=== PATIENT | male | born 1945 | race African-American/Black ===

== ENCOUNTER 2016-08-21 21:27 | Inpatient (IN) ==
--- NOTE | 2016-08-22 00:22 | PROVIDER DOCUMENTATION ---
HPI-Respiratory General - General Chief Complaint: General Adult Stated Complaint: COLD SX Time Seen by Provider: 08/21/16 23:23 Source: patient Allergies/Adverse Reactions: Patient Allergies Allergy/AdvReac Type Severity Reaction Status Date / Time No Known Allergies Allergy Verified 08/21/16 23:23 Home Medications: Home Medication List Medication Instructions Recorded Confirmed Last Taken Type Losartan/Hydrochlorothiazide 1 each PO DAILY 05/08/14 08/21/16 08/20/16 08:00 History [Losartan-Hctz 100-25 mg Tab] Allopurinol 200 mg PO DAILY 08/21/16 08/21/16 08/21/16 08:00 History Ergocalciferol (Vitamin D2) 50,000 unit PO DIRECTED 08/21/16 08/21/16 08:00 History [Drisdol] Gabapentin 300 mg PO TID 08/21/16 08/21/16 08/21/16 20:00 History Insulin Aspart [Novolog] 10 unit SQ BID 08/21/16 08/21/16 08/21/16 08:00 History Probenecid 500 mg PO DAILY 08/21/16 08/21/16 08/21/16 08:00 History Rosuvastatin Calcium 5 mg PO HS 08/21/16 08/21/16 08/21/16 20:00 History Sitagliptin Phos/Metformin HCl 1 each PO DAILY 08/21/16 08/21/16 08/21/16 08:00 History [Janumet 50-1,000 mg Tablet] - History of Present Illness-Resp Nature of Presenting Problem: 71 YO BM presents with productive cough x several days. Has been taking ALkaseltzer but not helping. No other treatment tried. Hasn't had a fever at home, slight increase in temp in the ED tonight. Has had pneumonia in the past but has been years. No recent hospitalization, no recent abx use. Denies N/V/D, sinus congestion or symptoms, ear pain, sore throat, swelling. Quality of Pain: reports: other Severity in ED: reports: mild Onset/Duration: reports: 3 days ago Timing: reports: still present, getting worse Cough Quality/Degree: reports: moderate, productive cough Current Respiratory Medication Therapy: Initiated none Modifying Factors: improves with: other (wilver seltzer) Associated Symptoms: reports: cough. denies: chest pain/soreness, dizziness, earache, facial pain, fever/chills, headache, hurts to breathe, lightheadedness , nasal congestion, nasal drainage, sinus pain, short of breath, sore throat, wheezing Similar Symptoms Previously?: No Recently seen or treated by another doctor?: No Review of Systems - Adult - REVIEW OF SYSTEMS - ADULT Constitutional: denies: chills, fever, night sweats, weight loss Eyes: denies: decreased vision, blurred vision, double vision Ears, Nose, Mouth & Throat: denies: ear pain, nose pain, throat pain Cardiovascular: denies: chest pain Respiratory: reports: cough, hemoptysis. denies: shortness of breath, wheezing Gastrointestinal: denies: abdominal pain, diarrhea, nausea, vomiting Musculoskeletal: denies: bone pain, back pain Neurological: denies: dizziness/vertigo, headache/migraines Past History - Adult - PAST MEDICAL HISTORY-ADULT Review of Records: reports: Old Records Reviewed, Nursing Assessment Review, Medications Reviewed, Social history reviewed & non-contributory. Major Childhood Illnesses: reports: denies history Cardiovascular: reports: HTN, hyperlipidemia Respiratory: reports: denies history Gastrointestinal: reports: denies history Obstetrical/Gynecological: reports: denies history Genitourinary: reports: prostate cancer Musculoskeletal: reports: denies history Neurological: reports: denies history Endocrine/Immune: reports: Diabetes Other Conditions: reports: denies history - PRIOR SURGERIES/PROCEDURES Surgical/Procedure History: reports: colonoscopy, other (prostate) - IMMUNIZATION STATUS Childhood Immunizations: See Nurse Assessment Flu Vaccine: See Nurse Assessment - FAMILY HISTORY Family History: reviewed, not pertinent - SOCIAL HISTORY Smoking: non-smoker, quit greater than 1 year Physical Exam-General - PHYSICAL EXAM-ADULT Initial Vital Signs Reviewed: Yes - CONSTITUTIONAL General Appearance: appears well, alert, no apparent distress - EYES Eyes: PERRL/EOMI, pink conjunctivae. negative: sclera injected, scleral icterus - HEAD, EARS, NOSE, MOUTH & THROAT HENMT: normocephalic/atraumatic, moist mucous membranes, pharynx normal. negative: pharyngeal erythema, tonsillar exudate - NECK Neck: full range of motion, supple, normal inspection - RESPIRATORY Respiratory: chest non-tender, no pleuratic chest pain, no respiratory distress , no accessory muscle use, wheezing. negative: lungs clear (slight wheezing in the right lower lobe), crackles, rales, rhonchi, stridor - CARDIOVASCULAR Cardiovascular: regular rate, rhythm, no edema, no gallop, no JVD, no murmur - GASTROINTESTINAL (ABDOMEN) Abdominal Exam: non tender, soft - MUSCULOSKELETAL Back Exam: no CVA tenderness, no vertebral tenderness. negative: ecchymosis, swelling - SKIN Integumentary: normal color, warm/dry - NEUROLOGIC Neurologic: pc tech II-XII nml as tested, grossly normal - PSYCHIATRIC Psych/Mental Status: normal mood/affect, normal thought content, normal thought process Progress - PLAN OF CARE/RESULTS Progress/Plan/Lab Results: Vital Signs - 8 hr 08/21/16 22:02 Temperature 99.2 F Pulse Rate 102 H Respiratory Rate 22 Blood Pressure 153/69 O2 Sat by Pulse Oximetry 91 L Laboratory Results - last 24 hr 08/22/16 08/22/16 00:22 01:16 WBC 10.30 RBC 5.78 Hgb 16.8 Hct 48.6 MCV 84.1 MCH 29.1 MCHC 34.6 RDW Std Deviation 13.5 Plt Count 167 MPV 9.9 Immature Gran % (Auto) 0.2 Neut % (Auto) 68.2 Lymph % (Auto) 18.7 L [place] % (Auto) 10.3 H Eos % (Auto) 2.3 Baso % (Auto) 0.3 Immature Gran # (Auto) 0.02 Neut # (Auto) 7.02 H Lymph # (Auto) 1.93 [place] # (Auto) 1.06 H Eos # (Auto) 0.24 Baso # (Auto) 0.03 Sodium 141 Potassium 3.9 Chloride 101 Carbon Dioxide 27 Anion Gap 13 BUN 16 Creatinine 1.4 H Estimated GFR/1.73 m2 60 BUN/Creatinine Ratio 11 Glucose 184 H Calculated Osmolality 287 Calcium 9.2 Total Bilirubin 0.34 AST 14 ALT 19 Alkaline Phosphatase 60 Total Protein 7.3 Albumin 3.7 Globulin 3.6 Albumin/Globulin Ratio 1.0 Orders Category Date Time Status CT THORAX W/CONTRAST [CT] Stat Exams 08/22/16 00:56 Taken cxr [CHEST-2 VIEWS] [RAD] Stat Exams 08/22/16 00:14 Taken CBC WITH DIFF [HEME] Stat Lab 08/22/16 00:22 Completed COMPREHENSIVE METABOLIC PANEL [CHEM] Stat Lab 08/22/16 01:16 Completed 0.9% Sodium Chloride Inj [Ns] 1,000 ml Med 08/22/16 02:28 Active IV 999 mls/hr Result Diagrams: 08/22/16 00:22 08/22/16 01:16 - REASSESSMENT Reassessment #1 Time Reassessed: 01:03 (Evaluation of CXR with Dr. Richter, left lung base has lesion approx 2 cm that was not in CXR from 2 years ago. Pt has hx prostate ca; no consolidation noted. Will get CT scan.) - CT/MRI 1 CT Study: Thorax Impression: Abnormal (left sided lung mass) - CHANGE OF SHIFT REPORT (ED Provider) Report Given and Care Transferred to:: Dr. Richter Time of Transfer: 02:29 (Waiting CT scan results) Items Pending: CT/MRI Results Departure - Departure Time of Disposition Decision: 02:47 DIAGNOSIS: Lung mass Disposition: ADMITTED INPATIENT 09 Certified Medical Emergency: Emergent Condition: Good Referrals and Follow-Ups: Madelin Yang CRNP [Primary Care Provider] - - Critical Care Note This patient required my direct & personal management of CC.: No
[2016-08-22 00:29] LABS: MANUAL DIFF NEEDED? NO
[2016-08-22 00:33] LABS: BASO% 0.3 % (0.0-0.8); EOS# 0.24 X1000 (0.0-0.7); EOS% 2.3 % (0.0-10.0); HEMATOCRIT 48.6 % (42.0-52.0); HEMOGLOBIN 16.8 g/dL (14.0-18.0); IMM GRAN# 0.02 X1000 (0.0-0.04); IMM GRAN% 0.2 % (0.0-0.5); LYMPH# 1.93 X1000 (1.2-3.4); LYMPH% 18.7 % (20.5-51.1); MCH 29.1 PG (27-31); MCHC 34.6 g/dL (33-37); MCV 84.1 FL (81-99); MONO# 1.06 X1000 (0.11-0.59); MONO% 10.3 % (1.7-9.3); MPV 9.9 FL (7.4-10.4); NEUT% 68.2 % (42.2-75.2); PLT 167 X1000 (130-400); RBC 5.78 XMIL (4.7-6.1)
[2016-08-22 01:55] LABS: ALBUMIN 3.7 g/dL (3.5-5.0); CALCIUM 9.2 mg/dL (8.8-10.2); POTASSIUM 3.9 mmol/L (3.5-5.1); TOTAL BILIRUBIN 0.34 mg/dL (0.20-1.00); TOTAL PROTEIN 7.3 g/dL (6.3-8.3)
[2016-08-22] MEDS ORDERED: NS 1,000 ML IV ONE (02:28)
[2016-08-22] MEDS ORDERED: LOVENOX SUBQ SCH (04:19)
[2016-08-22] MEDS ORDERED: VITAMIN D PO SCH (04:19)
[2016-08-22] MEDS ORDERED: ZOFRAN IV PRN (04:19)
[2016-08-22] MEDS ORDERED: TYLENOL PO PRN (04:19)
[2016-08-22] MEDS: NS 1,000 ML IV SCH ×2 (04:25→17:23)
--- NOTE | 2016-08-22 05:07 | HISTORY AND PHYSICAL ---
PRIMARY CARE PHYSICIAN: EUNICE Alexander. LEGEND MAKER: Dr. Garcia. UROLOGIST: Dr. Sheppard. CHIEF COMPLAINT: Cough. HISTORY OF PRESENT ILLNESS: This is a 71-year-old, male who presented to the emergency room with a productive cough over the last 2-3 days. He stated in the last day, he noticed some mild blood tinging to the sputum. He denied any fever, chills, sinus congestion, nausea, vomiting, diarrhea, ear pain, sore throat, or shortness of breath, or chest pain. He stated that today, the cough was getting worse. He had been taking Lizeth-[place] with no relief. The patient has a history of hypertension, hyperlipidemia, prostate cancer with prostatectomy, diabetes mellitus type 2 now insulin dependent. On arrival to the emergency room, a chest x-ray was obtained which showed a left lung base lesion approximately 2 cm that was not on a chest x-ray from [address] scan was then ordered of the thorax which showed a left-sided lung mass. The patient will be evaluated for further evaluation and treatment. PAST MEDICAL HISTORY: See HPI. PREVIOUS SURGICAL HISTORY: 1. Hemorrhoidectomy. 2. Colonoscopy. 3. Prostatectomy. SOCIAL HISTORY: Lives home alone. 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 Drinks occasional beer. He apparently had a history of fairly heavy alcohol use but has not used alcohol heavily recently. Smoked for many years. Quit roughly 10 years ago. Denies illicit drug use or abuse. FAMILY HISTORY: Mother from a CVA at 71. Sister from ovarian cancer at 65. The patient has a brother who has colon cancer in remission, a sister with renal failure, and another brother with hypertension. ALLERGIES: No known drug allergies. HOME MEDICATIONS: 1. Losartan/hydrochlorothiazide 100/25 one p.o. daily. 2. Neurontin 300 mg p.o. t.i.d. 3. Rosuvastatin calcium 5 mg p.o. at bedtime. 4. Janumet one p.o. daily. 5. Drisdol 50,000 units p.o. as directed. 6. Allopurinol 200 mg p.o. daily. 7. Insulin aspart 10 units subcutaneously b.i.d. 8. Probenecid 500 mg p.o. daily. REVIEW OF SYSTEMS: Fourteen point review of systems conducted with the patient. Pertinent positives listed above in the HPI. All other systems have been reviewed and found to be negative. PHYSICAL EXAMINATION: VITAL SIGNS: Temperature 98.3 degrees, temperature max of 99.2, pulse 66, respirations 18, blood pressure 136/65, oxygen saturation 94% on room air. GENERAL: A pleasant, 71-year-old, male lying on the ER stretcher. No acute distress. Does have a prominent cough. Answers all questions appropriately. HEENT: Head is atraumatic, normocephalic. Pupils equal, round, and reactive to light. Extraocular eye movement is intact. Sclerae are anicteric. Conjunctivae are pink. Oral mucosa is moist. NECK: Supple. No JVD. No thyromegaly. Trachea is midline. No cervical lymphadenopathy. CARDIAC: Regular rate and rhythm. S1-S2 appreciated. No murmurs, gallops, rubs. LUNGS: Decreased bilaterally. No rhonchi or rales. Slight wheezing noted, more prominent in the right lower lobe. Symmetrical rise and fall with respirations. ABDOMEN: Soft, nondistended, nontender. Bowel sounds present in all 4 quadrants, normoactive. No pulsatile mass. No organomegaly. EXTREMITIES: No clubbing, cyanosis, or edema. There are 2+ pedal pulses. NEUROLOGICAL: Alert and oriented x3. Cranial nerves 2-12 grossly intact. SKIN: Warm, dry, and intact. Color appropriate for race. GENITOURINARY: Patient voids, otherwise deferred. DIAGNOSTIC DATA: Chest x-ray showed approximately a [address] lung lesion. CT of the thorax showed a left-sided lung mass. LABORATORY DATA: WBC 10.3, hemoglobin 16.8, hematocrit 48.6, platelet count 167,000. Sodium 141, potassium 3.9, chloride 101, carbon dioxide 27, BUN 16, creatinine 1.4, glucose 184. ASSESSMENT AND PLAN: 1. New left lung lesion. We will consult Dr. Galo, adjunct instructor of women's studies, for a possible biopsy. The patient has had a prominent cough, noted that it was blood tinged today. Has had no other symptoms. 2. Fluid volume depletion. Patient was given a fluid bolus in the emergency room. We will continue normal saline for gentle fluid rehydration. 3. Acute kidney injury. See #2. 4. Hypertension. Continue home antihypertensives. 5. Diabetes mellitus type 2, now insulin dependent. We will treat with sliding scale insulin with fingersticks before meals and at bedtime. Check hemoglobin A1c. 6. Hyperlipidemia. Continue rosuvastatin calcium. 7. Further recommendations per patient's clinical course. Dictated by EUNICE Ely for Woodrow Maher MD cc: EUNICE Ely MD Vijayanarayana R. Jampala, MD Lewis N. Cunningham, DO Stephanie Weems, CRNP
[2016-08-22 05:22] LABS: HEMOGLOBIN A1C 7.7 % (4.8-6.0)
[2016-08-22] MEDS: HUMALOG SUBQ SCH ×3 (06:03→17:35)
--- NOTE | 2016-08-22 08:53 | Diag Imaging Result Document ---
PROCEDURE NAME: CT THORAX W/CONTRAST - 08/22/2016 CT OF THE CHEST WITH INTRAVENOUS CONTRAST AND CLARITY: FINDINGS: There are emphysematous changes particularly in the right upper lobe. There is a 15-mm noncalcified nodule adjacent to the diaphragmatic pleura in the left lower lobe. Several other nodular areas of thickening are present over the left hemidiaphragm most notably on image 91 there is a multilobulated and spiculated lesion in the posterior left lower lobe which abuts the pleura posteriorly measuring 2.5 cm in diameter. There is a 12 mm right paratracheal node and several smaller aorticopulmonary window nodes are present. There is a node in the right hilum approaching 15 mm in diameter and another in the lower left hilum which has a short axis dimension exceeding 9 mm. There are no abnormal fluid collections. There is a small splenule in the splenic hilus. There is a granuloma in the left hepatic lobe. There are some spondylotic changes in the thoracic and visualized lower cervical spine. There are some pleural calcifications present in the left hemithorax. There is a prevascular node measuring 2.4 x 1 cm. IMPRESSION: 1. Left lower lobe mass. The possibility of primary or secondary malignancy cannot be excluded. 2. Pleural thickening and nodularity on the left, some of which is associated with calcification. This may be a result of previous inflammatory disease, however the possibility at least of the noncalcified lesions being related to neoplastic disease cannot be excluded. 3. Nonspecific mediastinal and hilar adenopathy. 4. COPD.
--- NOTE | 2016-08-22 08:54 | Diag Imaging Result Document ---
PROCEDURE NAME: CHEST-2 VIEWS - 08/22/2016 CHEST X-RAY 2 VIEWS, 08/22/2016: COMPARISON: 05/02/2014. FINDINGS: There is a subtle nodular density projecting over the left heart border, possibly in the left lower lobe. This measures about 2.[address] recommended. IMPRESSION: New nodular density in the left lower lobe. Chest CT recommended.
[2016-08-22] MEDS: HYZAAR 50/12.5 MG PO SCH (10:44)
[2016-08-22] MEDS: ZYLOPRIM PO SCH (10:44)
[2016-08-22] MEDS: BENEMID PO SCH (10:44)
[2016-08-22] MEDS: NEURONTIN PO SCH ×3 (10:44→17:47)
[2016-08-22] MEDS ORDERED: SODIUM CHLORIDE 0.9% 10 ML ONE (11:59)
[2016-08-22] MEDS ORDERED: ALBUTEROL NEB ONE (14:04)
--- NOTE | 2016-08-22 17:14 | CONSULTATION ---
DATE OF CONSULTATION: 08/22/2016 REQUESTING PHYSICIAN: Sourav Sauceda MD REASON FOR CONSULTATION: Pulmonary nodules. HISTORY OF PRESENT ILLNESS: Mr. Bridges is a 71-year-old black male with a greater than 100 pack year history for tobacco (nonsmoker x10 years), history of alcohol use, who presented to the hospital with new onset cough with blood-tinged sputum. He has no other signs or symptoms of infection. Chest x-ray revealed a new 2 cm nodule in the left lung base, which was not present 2 years ago. The patient underwent CT scan of the thorax which revealed a 2.5 cm spiculated lesion in the left lower lobe, with nonspecific mediastinal and hilar adenopathy. Mild emphysematous changes could be seen. PAST MEDICAL HISTORY/PROBLEM LIST: 1. Chronic obstructive pulmonary disease without formal evaluation. 2. Diabetes mellitus, recently initiated on insulin. 3. Gout. 4. Hypertension. 5. Prostate cancer, status post prostatectomy by report in 2014. He has had no recent followup. SOCIAL HISTORY: Prior tobacco use. Continued alcohol abuse. 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 Patient may have had exposure to asbestos. FAMILY HISTORY: Positive for ovarian cancer, colon cancer, renal failure, hypertension, and strokes. REVIEW OF SYSTEMS: As noted in the history of present illness, but is otherwise negative. PHYSICAL EXAMINATION: General: Reveals a healthy appearing black male, resting comfortably and in no distress. Vital Signs: Blood pressure 132/64, heart rate 76, respiration rate 16, oxygen saturation 92% on room air. HEENT: Pupils are equal and reactive. Oropharynx is clear. Neck: Supple. Chest: Reveals mild prolongation of expiratory phase. No wheezing or rhonchi. Cardiac: A regular rate. Normal S1, normal S2. Abdomen: Soft with mild truncal obesity. Extremities: Without edema. LABORATORIES: CT scan as per history of present illness. White blood count 10.30, hemoglobin 16.8, platelet count 167,000. Sodium 141, potassium 3.9, chloride 101, BUN 16, creatinine 1.4. Hemoglobin A1c 7.7. IMPRESSION: A 71-year-old with extensive tobacco history, prior prostate cancer surgery, who presents with a bronchitic-like picture, but with a dominant mass in the left lower lobe. Given presentation, primary concern is lung cancer. RECOMMENDATIONS: 1. Hold Lovenox today. 2. Check pulmonary function studies. 3. CT-guided biopsy of the lesion in the left base. 4. Additional recommendations pending outcome of biopsy. cc: Gunnar Galo MD
--- NOTE | 2016-08-22 18:14 | PROGRESS NOTE ---
DATE: 08/22/2016 SUBJECTIVE: Mr. Bridges was admitted early this morning. A 71-year-old, who presented to the emergency room with a productive cough over last 2-3 days. Had some left-sided anterolateral chest pain. Noticed some blood tinge in the sputum. PAST MEDICAL HISTORY: He has been taking some Lizeth-[place] for the discomfort. History of hypertension, hyperlipidemia, and prostate cancer with prostatectomy. Diabetes mellitus type 2. Chest x-ray showed left lung base lesion, approximately 2 cm, which was not on chest x-ray two years ago. CT of the chest has been ordered of the thorax which showed left-sided lung mass. The patient, I think, is planning on getting a needle biopsy tomorrow. He does feel better. He is still coughing and still some occasional blood-tinged sputum. He had pulmonary function tests and FVC post bronch was 65% predicted. FEV1 was 62% predicted. Lab from this morning; white count 10,300, hematocrit 48, platelet count 167,000. Sodium 141, potassium 3.9, chloride 101, BUN 16, creatinine 1.4. Blood sugar 184. Hemoglobin A1c 7.7. Albumin 3.7. ASSESSMENT AND PLAN: 1. New left lung lesion. Dr. Galo consulted. I think planning on a biopsy tomorrow, CT-guided biopsy. Has prominent cough and some blood in the sputum. 2. Fluid volume depletion. Given some IV fluids. Seems to be doing better. 3. Acute kidney injury. Renal function creatinine is 1.4. 4. Hypertension. Continue to watch his blood pressure. 5. Diabetes mellitus type 2. Continue pattern sugars and sliding scale. 6. Hyperlipidemia. Reviewed orders and I do not see anything changed this point. cc: Sourav Sauceda MD
[2016-08-22] MEDS: CRESTOR PO SCH (20:17)
[2016-08-22] MEDS ORDERED: DUONEB (A & A) INH PRN (20:22)
[2016-08-22] MEDS: DUONEB (A & A) INH SCH ×2 (20:29→23:10)
[2016-08-22] MEDS: MUCINEX PO SCH (21:12)
[2016-08-22] MEDS ORDERED: LEVAQUIN 500 MG in NS 100 ML IV SCH (22:00)
[2016-08-23] MEDS: HUMALOG SUBQ SCH ×5 (01:28→21:51)
[2016-08-23] MEDS: DUONEB (A & A) INH SCH ×6 (03:21→23:45)
[2016-08-23 06:27] LABS: MANUAL DIFF NEEDED? NO
[2016-08-23 06:33] LABS: BASO% 0.3 % (0.0-0.8); EOS# 0.08 X1000 (0.0-0.7); EOS% 1.1 % (0.0-10.0); HEMATOCRIT 46.1 % (42.0-52.0); HEMOGLOBIN 15.7 g/dL (14.0-18.0); IMM GRAN# 0.03 X1000 (0.0-0.04); IMM GRAN% 0.4 % (0.0-0.5); LYMPH# 1.61 X1000 (1.2-3.4); LYMPH% 21.6 % (20.5-51.1); MCH 29.1 PG (27-31); MCHC 34.1 g/dL (33-37); MCV 85.4 FL (81-99); MONO# 0.95 X1000 (0.11-0.59); MONO% 12.7 % (1.7-9.3); MPV 10.2 FL (7.4-10.4); NEUT% 63.9 % (42.2-75.2); PLT 159 X1000 (130-400)
[2016-08-23 06:42] LABS: INR 1.13
[2016-08-23 07:05] LABS: AGAP 14; BUN 18 mg/dL (8-22); CALCIUM 9.1 mg/dL (8.8-10.2); CHLORIDE 101 mmol/L (98-107); COSMO 290; POTASSIUM 3.8 mmol/L (3.5-5.1); SODIUM 141 mmol/L (136-145); TCO2 26 mmol/L (25-35)
[2016-08-23] MEDS: NS 1,000 ML IV SCH (08:26)
[2016-08-23] MEDS: HYZAAR 50/12.5 MG PO SCH (12:04)
[2016-08-23] MEDS: MUCINEX PO SCH ×2 (12:04→21:50)
[2016-08-23] MEDS: ZYLOPRIM PO SCH (12:04)
[2016-08-23] MEDS: NEURONTIN PO SCH ×3 (12:04→17:41)
[2016-08-23] MEDS: BENEMID PO SCH (12:04)
--- NOTE | 2016-08-23 12:36 | Diag Imaging Result Doc PS360 ---
EXAM: CT GUIDED BIOPSY LUNG COMPARISON: CT chest dated 08/22/2016 FINDINGS: Risks, benefits, and alternatives were discussed with the patient and informed consent was obtained. The patient was placed in a prone position and was prepped and draped in sterile fashion. Local anesthesia was achieved with 1% lidocaine solution. Using CT guidance, an 18-gauge coaxial biopsy needle system was used to obtain four 1.3 cm core biopsies from the known spiculated nodule in the left lower lobe seen on the prior CT. There were no known complications. A chest radiograph is to follow. IMPRESSION: Technically successful CT-guided left lower lobe lung biopsy. Electronically signed by Byron Arriaga 08/23/2016 12:34 PM
--- NOTE | 2016-08-23 14:14 | Diag Imaging Result Doc PS360 ---
EXAM: CHEST-2 VIEWS INDICATION: Recent left lung biopsy. COMPARISON: 08/22/2016 FINDINGS: There is no evidence of pneumothorax status post left lung biopsy. The left lower lobe mass seen on the previous study is stable. No new consolidations are appreciated. Cardiac silhouette is stable. IMPRESSION: No evidence of pneumothorax status post left lung biopsy. Stable chest, otherwise. Electronically signed by Byron Arriaga 08/23/2016 2:12 PM
--- NOTE | 2016-08-23 17:55 | PROGRESS NOTE ---
DATE: 08/23/2016 SUBJECTIVE: He feels good, in good spirits. No pain except in that left anterior chest. OBJECTIVE: Vital signs: Afebrile, temperature 98.4 degrees, pulse 82, respirations 20, blood pressure 127/73, CVP less than 6 cm. Lungs: Clear in all lung arredondo. Cardiovascular: Regular rhythm and rate without murmurs. Urine output 2200 mL. Lung biopsy, CT is planned for today CT guided. ASSESSMENT AND PLAN: 1. New left lung lesion, Dr. Galo consulted, thinking plan of CT guided biopsy which is to happen today. 2. Fluid volume depletion has been supplemented, looks good. 3. Acute kidney injury resolved, serum creatinine is 1.4. 4. Hypertension. 5. Diabetes mellitus type 2. Sugars under good control. Await pathology. Possibly could go home tomorrow. cc: Sourav Sauceda MD
[2016-08-23] MEDS: CRESTOR PO SCH (21:50)
[2016-08-24] MEDS: DUONEB (A & A) INH SCH ×4 (03:58→15:44)
[2016-08-24] MEDS: HUMALOG SUBQ SCH ×3 (06:27→16:30)
[2016-08-24] MEDS: NS 1,000 ML IV SCH (06:27)
[2016-08-24] MEDS: HYZAAR 50/12.5 MG PO SCH (11:43)
[2016-08-24] MEDS: BENEMID PO SCH (11:43)
[2016-08-24] MEDS: MUCINEX PO SCH (11:43)
[2016-08-24] MEDS: ZYLOPRIM PO SCH (11:43)
[2016-08-24] MEDS: NEURONTIN PO SCH ×2 (11:43→15:48)
--- NOTE | 2016-08-24 14:05 | DISCHARGE SUMMARY ---
ADMISSION DATE: 08/22/2016 DISCHARGE DATE: 08/24/2016 This is a patient of EUNICE Alexander, Dr. Kodi Garcia, and Dr. Armando Sheppard. A 71-year-old black male who presented to the emergency room on 08/22/2016 with a productive cough over the last 2 or 3 days. He stated that the day before admission he started having some blood- tinged sputum. He denied any fever, chills, congestion, nausea, vomiting, diarrhea, ear pain, sore throat, shortness of breath, or chest pain. He stated that today the cough is getting worse. He has been taking Lizeth-[place] with no relief. The patient has a history of hypertension, hyperlipidemia, prostate cancer, prostatectomy, and diabetes mellitus, type 2, which is insulin dependent. On arrival to the emergency room, chest x-ray obtained showed a left lung base lesion OF approximately 2 cm that was not on the chest x-ray [address] scan was ordered of the thorax and showed a left-sided lung mass. PAST MEDICAL HISTORY: 1. Hemorrhoidectomy. 2. Colonoscopy. 3. Prostatectomy. PAST SURGICAL HISTORY: Hemorrhoidectomy, colonoscopy, prostatectomy, and the patient received a lung needle biopsy on 08/23/2016, successful, and was diagnosed with lung cancer. PLAN: We will set up to follow up with Oncology and to get a PET scan as an outpatient. We will discharge him home on 08/24/2016. Await full pathology. Dr. Galo is on the case. He will come back in [address] Gunnar Galo. cc: MD Madelin Padgett CRNP
[2016-08-24 14:32] VITALS: BP 126/78
== END 2016-08-24 16:45 | disposition home or self-care (01) ==
LOC: ED 21:27 → 3N 08-22 04:04 → SUATTDRO 08-22 04:04
PROVIDERS: ATTEND Emergency Medicine

== ENCOUNTER 2016-11-10 17:56 | Inpatient (IN) ==
[2016-11-10 19:47] LABS: MANUAL DIFF NEEDED? NO
[2016-11-10 19:50] LABS: BASO% 0.2 % (0.0-0.8); HEMATOCRIT 34.5 % (42.0-52.0); HEMOGLOBIN 11.3 g/dL (14.0-18.0); IMM GRAN# 0.02 X1000 (0.0-0.04); IMM GRAN% 0.2 % (0.0-0.5); LYMPH# 1.25 X1000 (1.2-3.4); LYMPH% 12.4 % (20.5-51.1); MCH 28.6 PG (27-31); MCHC 32.8 g/dL (33-37); MCV 87.3 FL (81-99); MONO# 1.21 X1000 (0.11-0.59); MPV 9.5 FL (7.4-10.4); NEUT% 74.2 % (42.2-75.2); PLT 431 X1000 (130-400); RBC 3.95 XMIL (4.7-6.1)
--- NOTE | 2016-11-10 20:06 | Diag Imaging Result Doc PS360 ---
EXAM: CHEST-2 VIEWS INDICATION: sob/a flutter TECHNIQUE: 2 views COMPARISON: 08/23/2016 FINDINGS: There is increased opacity at the left lung base suggesting infiltrate. This obscures the region of the known mass in the left lung base seen on the previous study. There is also probably a small effusion on the left. The cardiac silhouette is mildly prominent. IMPRESSION: 1.Increased left basilar opacity suggesting infiltrate and possibly small effusion. 2.Mildly prominent heart. Electronically signed by Byron Arriaga 11/10/2016 8:04 PM
[2016-11-10 20:15] LABS: AGAP 12; ALBUMIN 3.1 g/dL (3.5-5.0); ALKALINE PHOSPHATASE 73 U/L (32-122); BUN 14 mg/dL (8-22); CALCIUM 9.1 mg/dL (8.8-10.2); CHLORIDE 98 mmol/L (98-107); COSMO 281; GOT 15 U/L (10-34); GPT 15 U/L (10-44); MAGNESIUM 1.9 mg/dL (1.5-2.7); POTASSIUM 3.9 mmol/L (3.5-5.1); SODIUM 139 mmol/L (136-145); TCO2 29 mmol/L (25-35); TOTAL PROTEIN 6.9 g/dL (6.3-8.3)
[2016-11-10] MEDS ORDERED: LASIX IV ONE (20:42)
--- NOTE | 2016-11-10 20:48 | PROVIDER DOCUMENTATION ---
This chart was entered by Khloe Raymond Scribe, acting as scribe for Christian Richter MD. HPI-General Adult - General Chief Complaint: General Adult Stated Complaint: abnormal ekg Time Seen by Provider: 11/10/16 18:12 Source: patient Allergies/Adverse Reactions: Patient Allergies Allergy/AdvReac Type Severity Reaction Status Date / Time No Known Allergies Allergy Verified 11/10/16 18:40 Home Medications: Home Medication List Medication Instructions Recorded Confirmed Last Taken Type Ergocalciferol (Vitamin D2) 50,000 unit PO DIRECTED 08/21/16 11/10/16 History [Drisdol] Gabapentin 300 mg PO TID 08/21/16 11/10/16 11/10/16 History Rosuvastatin Calcium 5 mg PO HS 08/21/16 11/10/16 11/09/16 History Sitagliptin Phos/Metformin HCl 1 each PO DAILY 08/21/16 11/10/16 11/10/16 History [Janumet 50-1,000 mg Tablet] Colchicine/Probenecid [Colbenemid] 1 each PO DAILY 11/10/16 11/10/16 11/10/16 History Docusate Sodium [Colace] 100 mg PO TID 11/10/16 11/10/16 11/10/16 History Furosemide 40 mg PO DAILY 11/10/16 11/10/16 11/10/16 History Gemfibrozil 600 mg PO BID 11/10/16 11/10/16 11/10/16 History Hum Insulin NPH/Reg Insulin Hm 10 unit SQ BID 11/10/16 11/10/16 11/10/16 History [Novolin 70-30 100 Unit/ml Vial] Hydrocodone/Acetaminophen [Friona 1 - 2 each PO Q4H PRN PRN 11/10/16 11/10/1606/24 History 5-325 Tablet] Ipratropium/Albuterol INH 1 puff INH PRN PRN 11/10/16 11/10/16 11/10/16 History [Combivent Respimat Inhaler] Multivit, Iron, Min No. 8, FA 1 each PO DAILY 11/10/16 11/10/16 11/10/16 History [Theragran-M Advanced Formula] Multivit-Min/FA/Lycopen/Lutein 1 each PO DAILY 11/10/16 11/10/16 11/10/16 History [Centrum Silver Tablet] Omeprazole 40 mg PO DAILY 11/10/16 11/10/16 11/10/16 History Tamsulosin [Flomax] 0.4 mg PO HS 11/10/16 11/10/16 11/09/16 History - History of Present Illness -Gen Adult Nature of Presenting Problems: 71 year old M presents to the ED with a cc of an abnormal EKG. PT states that he was having pre-operative labs and EKG done. PT states that he was told to come to the ED due to being in A-flutter on his EKG. PT also c/o shortness of breath. PT is on 2-4 L of O2 at home. Location of Pain/Injury: reports: none Pain Radiation: reports: no radiation Quality of Pain: reports: none Severity: reports: mild Onset/Duration: reports: this afternoon Timing: reports: resolved prior to arrival Modifying Factors: improves with: nothing Associated Symptoms: reports: denies symptoms Similar Symptoms Previously?: No Recently seen or treated by another doctor?: Yes Review of Systems - Adult - REVIEW OF SYSTEMS - ADULT Constitutional: denies: chills, fever Eyes: reports: no symptoms reported Ears, Nose, Mouth & Throat: reports: no symptoms reported Cardiovascular: denies: chest pain, palpitations Respiratory: reports: shortness of breath. denies: cough Gastrointestinal: denies: abdominal pain, nausea, vomiting Genitourinary: reports: no symptoms reported Musculoskeletal: denies: muscle aches, muscle weakness Integumentary: denies: skin sores/ulcer, skin thickening Neurological: reports: no symptoms reported Psychiatric: reports: no symptoms reported Endocrine: reports: no symptoms reported Hematologic/Lymphatic: reports: no symptoms reported Allergic/Immunologic: reports: no symptoms reported All Other Systems: Reviewed and Negative Past History - Adult - PAST MEDICAL HISTORY-ADULT Review of Records: reports: Nursing Assessment Review, Medications Reviewed Major Childhood Illnesses: reports: denies history Cardiovascular: reports: HTN, hyperlipidemia Respiratory: reports: denies history Gastrointestinal: reports: denies history Obstetrical/Gynecological: reports: denies history Genitourinary: reports: prostate cancer Musculoskeletal: reports: denies history Neurological: reports: denies history Endocrine/Immune: reports: Diabetes Other Conditions: reports: denies history - PRIOR SURGERIES/PROCEDURES Surgical/Procedure History: reports: colonoscopy, other (prostate) - IMMUNIZATION STATUS Childhood Immunizations: See Nurse Assessment Flu Vaccine: See Nurse Assessment - FAMILY HISTORY Family History: reviewed, not pertinent - SOCIAL HISTORY Smoking: non-smoker Substance Use: none/never Alcohol Use Frequency: never Living Situation: family Physical Exam-General - PHYSICAL EXAM-ADULT Initial Vital Signs Reviewed: Yes - CONSTITUTIONAL General Appearance: appears well, alert, no apparent distress - RESPIRATORY Respiratory: chest non-tender, lungs clear, normal breath sounds - CARDIOVASCULAR Cardiovascular: normal peripheral pulses, regular rate, rhythm, no edema - GASTROINTESTINAL (ABDOMEN) Abdominal Exam: normal bowel sounds, non tender, soft - MUSCULOSKELETAL Extremity: pedal edema (bilateral up to mid thigh), other (clubbing of finger tips) - SKIN Integumentary: normal color, normal turgor, warm/dry - PSYCHIATRIC Psych/Mental Status: normal mood/affect, normal thought content, normal thought process, oriented x 3 Progress - PLAN OF CARE/RESULTS Progress/Plan/Lab Results: Vital Signs - 8 hr 11/10/16 18:01 Temperature 98.4 F Pulse Rate 89 Respiratory Rate 18 Blood Pressure 137/58 O2 Sat by Pulse Oximetry 96 Orders Category Date Time Status CBC WITH ELECTRONIC DIFF [HEME] Stat Lab 11/10/16 18:58 Uncollected CMP [COMPREHENSIVE METABOLIC PANEL] [CHEM] Stat Lab 11/10/16 18:58 Uncollected MAGNESIUM [CHEM] Stat Lab 11/10/16 18:58 Uncollected EKG [EKG] Stat Ther 11/10/16 18:14 Ordered Result Diagrams: 11/10/16 19:19 11/10/16 19:19 - EKG 1 Time of EKG reading by physician:: 18:26 EKG Read and Signed by:: Christian Richter EKG Interpretation (*Must complete 3 of following elements*): Abnormal Rate: 82 Rhythm: NSR ST Wave: non-specific ST changes - XRAY 1 XRAY Study: Chest Impression: Abnormal Comparison with other Films: changes noted XRAY Interpretation: cardiomegally: Dr. Richter(ER MD) Departure - Departure Date of Disposition Decision: 11/10/16 Time of Disposition Decision: 20:43 DIAGNOSIS: Transient atrial fibrillation or flutter CHF (congestive heart failure) Qualifiers: Congestive heart failure type: unspecified congestive heart failure type Congestive heart failure chronicity: acute Qualified Code(s): I50.9 - Heart failure, unspecified Disposition: ADMITTED INPATIENT 09 Certified Medical Emergency: Emergent Condition: Good Referrals and Follow-Ups: Jun Tracy [Primary Care Provider] - - Critical Care Note This patient required my direct & personal management of CC.: No Attestation - Physician/ SOULEYMANE Attestation Patient care was provided by Advanced Practice Provider:: No The physician spent face to face time with patient:: Yes Advanced Practice Provider documentation review:: Supervising physician onsite and consulted in the evaluation and care of this patient. The physician did have a face to face encounter with the patient. This chart was documented by the indicated scribe, (Khloe Raymond Scribe) and accurately reflects the services I performed and decisions made by me, Christian Richter MD, as attested by the provider's signature.
[2016-11-10] MEDS ORDERED: DUONEB (A & A) INH ONE (21:04)
--- NOTE | 2016-11-10 22:44 | HISTORY AND PHYSICAL ---
REASON FOR ADMISSION: Incidental finding of atrial flutter and a 2-week history of lower extremity swelling. HISTORY OF PRESENT ILLNESS: Mr. Arnav Bridges is a 69-year-old male with past medical history of type 2 diabetes, hypertension, hyperlipidemia, gout, and COPD. He also has a history of prostate cancer, status post prostate prostatectomy and underwent a left lower lobectomy about 2-3 weeks ago at [facility] for lung cancer, type unknown. The patient and family report that since the surgery he has been having increased shortness of breath, now requiring home O2. He also reports progressive lower extremity swelling with more recent abdominal distention, PND and orthopnea. He said postoperatively he was having a lot of cough with some hemoptysis, but this has since improved. He denies any chest pain over the last 1 week except for the pain localized to the surgical incision site. He reports easy satiety and that his clothes have been fitting him tightly. His exercise tolerance each week has gotten worse. Prior to surgery he could walk a mile without any O2, but since surgery even with O2 he can barely go 20 feet. He denies any fever, however. His urine output has not changed. He denies any GI complaints other than easy satiety. He denies any focal weakness, numbness or tingling. He does require the use of MDI more frequently. By the way this was prescribed to him for his surgery. He never used an MDI prior to that. The patient was brought to the ER primarily because when they were doing his preoperative workup for elective urethral stricture repair, they noticed that his heart rate was in 150s and atrial flutter. Since he has been in the ER, this has spontaneously converted back to sinus rhythm at 80. He said even during that time, he had no cardiorespiratory complaints when they did EKG. REVIEW OF SYSTEMS: All systems negative. Positive findings per HPI. ALLERGIES: No known allergies. HOME MEDICATIONS: 1. Colchicine/probenecid 1 daily. 2. Colace 100 mg t.i.d. 3. Vitamin D2, 50,000 international units weekly. 4. Lasix 40 mg daily. 5. Gabapentin 300 mg daily. 6. Lopid 600 mg b.i.d. 7. NPH 10 units b.i.d. 8. [place] 5 mg 1-2 q.4 p.r.n. 9. Combivent 1 puff p.r.n. 10. Multivitamin tablets 1 daily. 11. Omeprazole 40 mg daily. 12. Crestor 5 mg at bedtime. 13. Sitagliptin/metformin 1 daily. 14. Flomax 0.4 mg at bedtime. FAMILY HISTORY: His dad had of cirrhosis. Sister passed from ovarian cancer. Brother had colon cancer and a sister of end-stage kidney disease. Mother of a stroke. SOCIAL HISTORY: Drinks about 3 beers a day. 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 Stopped alcohol drinking over 10 years ago. No illicit drug use. Lives alone. SURGICAL HISTORY: Other than the recent left thoracotomy, he has had a hemorrhoidectomy and prostatectomy. LABORATORY WORK/IMAGING: White count 10,000, hemoglobin and hematocrit 11 and 34, platelets 433,000 with normal differential. Chemistries only notable for glucose of 1 144 , BUN is 14, creatinine 1.1. ProBNP is 1700. Chest x-ray shows increased left basilar opacity suggesting infiltrate and probably small effusion. Mildly prominent heart. EKG showed normal sinus rhythm with rate of 80 per minute and nonspecific ST T wave changes. PHYSICAL EXAMINATION: VITAL SIGNS: Blood pressure is 139/71, pulse is 80, respirations 18, temperature is 98.4 degrees. O2 saturation 98% on 2 L. GENERAL: He is an elderly man who is in mild respiratory distress. He is alert and oriented x3. Normal mood and affect. HEENT: Head is normocephalic, atraumatic. Eyes ROHAN, EOMI. He is anicteric. Not pale. ENT and oropharyngeal exam is grossly normal. No central cyanosis noted. NECK: Supple. No visible JVD with positive hepatojugular reflux. No bruit. No thyromegaly. LUNGS: Absent air entry in the left lower lung base. There is almost completely healed left thoracotomy scar, with no evidence of surrounding erythema, exudation or tenderness. Good air entry in the right lung field. No wheezes. No crepitations. CARDIOVASCULAR: First and second heart sounds heard. No gallops, rubs. Rhythm is regular. ABDOMEN: Slightly protuberant, soft. No tenderness elicited. Bowel sounds are normal. RECTAL: Deferred at this time. No mass or organomegaly. EXTREMITIES: Patient has 2+ pitting edema up to the knees bilaterally. Pulses distally in the lower extremities are significantly diminished possibly due to edema but they are symmetrical. Patient had good volumes in distal upper extremity pulses. No clubbing or peripheral cyanosis noted. The distal aspect of his feet are slightly cool to touch. NEUROLOGICAL: No focal deficits. SKIN: Intact. No breakdown lesions or erythema. EXTREMITIES: Exam is grossly normal. ASSESSMENT: 1. Congestive heart failure. New onset. The patient had a preop echo done before surgery in September. At that time, he had an of 65-70% and he had both normal ventricular and diastolic function. No valvular abnormality. He at that time had a myocardial perfusion scan which showed no evidence of ischemic pathology. For now, the patient's clinical picture is consistent with congestive heart failure, etiology yet to be determined, unlikely to be ischemic. This could be related to cor pulmonale, because he has underlying lung disease and he has had some decrease in his lung volume which may have altered the architecture of his pulmonary vasculature. Based on Wells criteria, the patient has 21% risk of possible pulmonary embolus. Doing a D-dimer in this patient may not add anything extra to the picture although if it is normal, it would definitely be reassuring that this patient may not have a pulmonary embolus, so I will order D-dimer. If positive we will proceed with a computed tomography angiography due to the fact the patient has just recently had surgery and he has also had a lung malignancy and probably he is less active based on admission and before. I will start patient empirically on Lovenox 1 mg/kg. Also because patient has had atrial flutter and I applied the CHADS score, even though it was designed for atrial fibrillation, this patient will definitely reach criteria for anticoagulation. It is possible that the patient may have had asymptomatic atrial flutter which may have also contributed or caused congestive heart failure in this patient. For now, we will start patient on diuresis and breathing treatments. At this point, I am equivocating on the need to put him on low-dose beta blockers, which I may go ahead and put him on. 2. Atrial flutter could be the cause or could be as a consequence of his hypoxemia. We will put the patient on anticoagulation, consult Cardiology, order an echo and put patient on low-dose beta blockers. 3. Chronic obstructive pulmonary disease. Continue bronchodilators and home O2 support. 4. Type 2 diabetes. Continue with sliding scale and will hold his home dose of NPH 70/30. 5. Hypertension. We will continue to follow the patient. The patient is currently is not on any antihypertensive at this point in time, and he was previously on Hyzaar preoperatively, but it has been discontinued for some obvious reasons. In its place probable will put patient on low- dose beta blockers or calcium channel blockers i.e. Cardizem. 6. Gout. Continue with colchicine and probenecid. Avoid if possible Zaroxolyn which is a thiazide-type diuretic which could worsen his gout. If an ARB is considered , losartan will be the best choice in this patient as it has been shown to lower uric acid levels. 7. Hyperlipidemia. Continue with Crestor or better still for cost reasons we may want to switch the patient to atorvastatin which also can lower uric acid levels. 8. Serial cardiac enzymes have also been ordered to be tested on electrolytes daily. cc: MD Jun Jackson Jr, MD William E. Hughes, MD [facility]IN[facility] HEALTH SYSTEMFranci
[2016-11-10] MEDS ORDERED: LOVENOX SUBQ SCH (23:00)
[2016-11-10 23:16] LABS: INR 1.23; PROTIME 13.1 Seconds (9.2-11.7); PTT 35.5 Seconds (22.0-36.0)
[2016-11-10] MEDS: LOPRESSOR PO SCH (23:55)
[2016-11-11] MEDS: DUONEB (A & A) INH SCH ×4 (02:55→21:20)
[2016-11-11] MEDS ORDERED: LASIX IV SCH (05:00)
[2016-11-11 05:02] LABS: MANUAL DIFF NEEDED? NO
[2016-11-11 05:19] LABS: BASO% 0.3 % (0.0-0.8); EOS# 0.12 X1000 (0.0-0.7); EOS% 1.3 % (0.0-10.0); HEMOGLOBIN 10.6 g/dL (14.0-18.0); IMM GRAN# 0.03 X1000 (0.0-0.04); IMM GRAN% 0.3 % (0.0-0.5); LYMPH# 1.38 X1000 (1.2-3.4); MCH 28.9 PG (27-31); MCHC 33.1 g/dL (33-37); MCV 87.2 FL (81-99); MONO# 1.23 X1000 (0.11-0.59); MONO% 13.3 % (1.7-9.3); MPV 9.5 FL (7.4-10.4); NEUT% 69.8 % (42.2-75.2); PLT 421 X1000 (130-400); RBC 3.67 XMIL (4.7-6.1)
[2016-11-11 05:37] LABS: AGAP 14; BUN 13 mg/dL (8-22); CALCIUM 9.2 mg/dL (8.8-10.2); CHLORIDE 97 mmol/L (98-107); COSMO 285; POTASSIUM 3.8 mmol/L (3.5-5.1); SODIUM 141 mmol/L (136-145); TCO2 30 mmol/L (25-35)
[2016-11-11] MEDS: PRILOSEC PO SCH ×2 (05:46→06:30)
[2016-11-11] MEDS: HUMALOG SUBQ SCH ×5 (05:52→20:07)
[2016-11-11] MEDS: HUMULIN 70/30 SUBQ SCH ×2 (08:44→16:59)
[2016-11-11] MEDS: COLACE PO SCH ×3 (08:45→16:59)
[2016-11-11] MEDS: LOPRESSOR PO SCH ×2 (08:45→20:03)
[2016-11-11] MEDS: ALDACTONE PO SCH (08:45)
[2016-11-11] MEDS: THERA M PLUS PO SCH (08:45)
[2016-11-11] MEDS: NEURONTIN PO SCH ×3 (08:45→16:59)
--- NOTE | 2016-11-11 10:10 | Diag Imaging Result Doc PS360 ---
EXAM: CHEST-2 VIEWS - 11/11/2016 HISTORY: chf TECHNIQUE: Chest two views COMPARISON: 11/10/2016 FINDINGS: There is stable mild cardiomegaly. There is been mild increase in left pleural effusion. Underlying left lower lung atelectasis or infiltrate is not excluded. There is slight prominence of interstitial markings on the right. There is a tiny right pleural effusion. There is no pneumothorax seen. IMPRESSION: Stable mild cardiomegaly. Mild increase in left pleural effusion. Electronically signed by Raymond Zuniga 11/11/2016 10:08 AM
--- NOTE | 2016-11-11 10:54 | CONSULTATION ---
DATE OF CONSULTATION: 11/11/2016 INDICATION: Atrial fibrillation. HISTORY OF PRESENT ILLNESS: Mr. Bridges is a 69-year-old black male with a history of type 2 diabetes, hypertension, hyperlipidemia. In addition, he has a history of lung cancer with recent left lower lobectomy. He apparently presented with a 2-week history of lower extremity swelling and was found to be in rapid atrial fibrillation. He has not had any episodes of palpitations. He has noted since the lung operation around 2-3 weeks ago he has had increasing shortness of breath and has had to use home oxygen therapy. He has not had any chest pain. No orthopnea. PAST MEDICAL HISTORY: 1. Diabetes. 2. Hypertension. 3. Hyperlipidemia. 4. Gout. 5. COPD. 6. Recent resection of a left lower lobe lung cancer. 7. History of prostate cancer status post prostatectomy. SOCIAL HISTORY: Drinks around 3 beers per day. He no longer works. No current alcohol. FAMILY HISTORY: Significant for father passing away of cirrhosis, sister had ovarian cancer and brother had colon cancer. Another sister has end-stage kidney disease. Mother apparently had a stroke. REVIEW OF SYSTEMS: A 10 system review of systems is negative, except for those things mentioned in HPI. PHYSICAL EXAMINATION: Vital Signs: The patient is afebrile. His current heart rate is 85, blood pressure 127/52. General: He is in no acute distress. HEENT: Oropharynx is moist. Poor dentition. Eye examination: [place] conjunctivae, white sclerae. Neck: Examination shows no obvious thyromegaly or thyroid tenderness. Cardiovascular: He is in a regular rate and rhythm. No obvious murmurs. Telemetry currently shows sinus. He has trace to 1+ lower extremity edema. Chest: Exam is relatively clear to auscultation bilaterally. No increased work of breathing. Abdomen: Soft, nontender, nondistended. He has no obvious organomegaly. Skin Exam: Warm and dry throughout without any rashes. Neurological: Moving all extremities well. Cranial nerves 2- 12 intact without any sensation deficits. Psychiatric: Alert and oriented, pleasant. Normal mood and affect. PERTINENT DATA: He had a mild left pleural effusion and mild cardiomegaly on his chest x-ray. His electrocardiogram initially showed what appeared to be either rapid atrial fibrillation or rapid atrial flutter with a rate of 156 beats per minute. He had a myocardial perfusion scan in September 2016 demonstrating no clear evidence of ischemia, EF of 72%. His echocardiogram was unremarkable as well showing normal systolic, as well as diastolic function. No significant valvular abnormalities. Possible mild enlargement of the right ventricle. Laboratory data shows white count 9.2, hematocrit 32, platelet count 421. Sodium 141, potassium 3.8, BUN 13, creatinine 1.1. Cardiac enzymes negative. ProBNP 1702. TSH was 1.06 in August. ASSESSMENT: 1. New onset atrial flutter. 2. Likely diastolic heart failure. PLAN: I agree with diuresis. I would decrease it to twice a day, though. The risks, benefits and alternatives were explained to the patient regarding anticoagulation therapy, including risk of bleeding and , and he agrees to proceed. I will stop the Lovenox and place him on Eliquis 5 mg b.i.d. I have increased his metoprolol to 25 mg twice a day. Presently, I will add a TSH onto his labs, but hopefully we can diurese him effectively, and we could get him out of the hospital in the next 24-48 hours. cc: Demarcus Bridges MD
[2016-11-11] MEDS: LASIX IV SCH ×2 (11:49→22:57)
--- NOTE | 2016-11-11 14:46 | PROGRESS NOTE ---
DATE: 11/11/2016 SUBJECTIVE: Patient has no complaints. He still has significant edema. OBJECTIVE: Blood pressure 119/51, heart rate of 83, respiratory 16, temperature 98.3 degrees, 97% on 4 L.Cardiovascular: Regular rate and rhythm. Pulmonary: Bilateral breath sounds. Clear to auscultation. GI: Soft, nontender, nondistended. Bowel sounds are positive. LABORATORY DATA: White count 9, H and H 10 and 32, platelets 421,000. BUN and creatinine of 13 and 1.1. Troponin was negative. PROBLEM LIST: 1. Congestive heart failure exacerbation presumed diastolic. We will continue diuresis. Cardiology has been consulted. They are following closely. 2. New onset atrial fibrillation. He is on metoprolol and anticoagulation with Eliquis. We will continue to monitor closely. 3. Dyslipidemia. Continue regular medications. 4. Diabetes. Appears relatively well controlled. We will continue regular medications. DISPOSITION: Hopefully home in the next 1-2 days. Will continue to follow closely. cc: Dariel Berry MD
--- NOTE | 2016-11-11 18:37 | ECHO REPORT ---
ORDER DATE: 11/10/2016 INTERPRETING PHYSICIAN: Dr. Quesada REQUESTING PHYSICIAN: CLINICAL INDICATIONS: CHF, COPD, lung cancer. M-MODE MEASUREMENTS: Right ventricle: 2.6 cm. Left ventricle end diastole: 4.5 cm. Left ventricle end systole: 2.8 cm. Posterior wall: 1.0 cm. Interventricular septum: 1.0 cm. Left atrium: 3.2 cm. Aortic root: 3.6 cm. SUMMARY OF 2-DIMENSIONAL IMAGING: This study was technically difficult. The patient appears to have a small pericardial effusion. No indication of tamponade is noted. The left ventricle is normal in size and function. The right ventricle appears to be grossly normal. The aortic valve also appears to be grossly normal. Color flow mapping unremarkable. The mitral valve looks grossly normal. Color flow mapping shows no significant regurgitation. Pulse wave Doppler of mitral inflow is normal. Tissue Doppler of septal and lateral mitral annulus averages 7 cm per second. There is no diastolic dysfunction. The pulmonic valve looks grossly normal. Color flow mapping unremarkable. The tricuspid valve shows a mild degree of regurgitation. The inferior vena cava is not dilated. The pulmonary venous flow is normal. The pulmonary pressure is estimated at 48-53 mmHg. IMPRESSION: In summary, this study shows: 1. Small pericardial effusion without tamponade. 2. Normal left ventricular systolic function. 3. No evidence of any significant valvular abnormality. 4. Pulmonary pressure estimated at 48 mmHg. 5. No diastolic dysfunction. Clinical correlation recommended. cc: MD Viktoriya Pillai MD
[2016-11-11] MEDS: CRESTOR PO SCH (20:03)
[2016-11-11] MEDS: ELIQUIS PO SCH (20:03)
[2016-11-11] MEDS: FLOMAX PO SCH (20:03)
[2016-11-12] MEDS: DUONEB (A & A) INH SCH ×4 (03:23→21:00)
[2016-11-12 05:28] LABS: HEMATOCRIT 31.6 % (42.0-52.0); HEMOGLOBIN 10.3 g/dL (14.0-18.0); MCH 28.9 PG (27-31); MCHC 32.6 g/dL (33-37); MCV 88.5 FL (81-99); MPV 9.4 FL (7.4-10.4); RBC 3.57 XMIL (4.7-6.1)
[2016-11-12 05:36] LABS: HEMOGLOBIN A1C 7.2 % (4.8-6.0)
[2016-11-12 05:39] LABS: AGAP 11; BUN 17 mg/dL (8-22); CALCIUM 8.8 mg/dL (8.8-10.2); CHLORIDE 99 mmol/L (98-107); COSMO 289; POTASSIUM 3.6 mmol/L (3.5-5.1); SODIUM 142 mmol/L (136-145); TCO2 32 mmol/L (25-35)
[2016-11-12] MEDS: PRILOSEC PO SCH (06:23)
[2016-11-12] MEDS: HUMALOG SUBQ SCH ×4 (06:27→21:37)
[2016-11-12] MEDS: NEURONTIN PO SCH ×3 (09:10→16:56)
[2016-11-12] MEDS: ELIQUIS PO SCH ×2 (09:10→21:09)
[2016-11-12] MEDS: LOPRESSOR PO SCH ×2 (09:10→21:09)
[2016-11-12] MEDS: THERA M PLUS PO SCH (09:10)
[2016-11-12] MEDS: ALDACTONE PO SCH (09:10)
[2016-11-12] MEDS: COLACE PO SCH ×3 (09:10→16:56)
[2016-11-12] MEDS: HUMULIN 70/30 SUBQ SCH ×2 (09:15→17:42)
[2016-11-12] MEDS: LASIX IV SCH ×2 (12:06→23:05)
--- NOTE | 2016-11-12 14:12 | PROGRESS NOTE ---
DATE: 11/12/2016 SUBJECTIVE: Patient continues without dyspnea on supplemental oxygen per nasal cannula. There has been no chest pain. OBJECTIVE: Vital signs: Blood pressure 120/50, heart rate 83 with ECG monitor showing sinus rhythm. Neck: Jugular venous distention evident suggesting JVP of 10 cm (mildly elevated). Chest: Clear to auscultation with diminished breath sounds diffusely. Cardiac Exam: Reveals a regular rate and rhythm without appreciable murmur or gallop. Extremities: Demonstrate 1+ pretibial edema. IMPRESSION: 1. Acute congestive heart failure probably multifactorial with significant component of cor pulmonale in patient with chronic obstructive pulmonary disease and status post lobectomy for lung cancer. 2. Recent onset atrial fibrillation. Patient now back in sinus rhythm. 3. Dyslipidemia. 4. Diabetes mellitus. 5. Chronic obstructive pulmonary disease. 6. Status post resection left lower lobe for lung cancer. RECOMMENDATIONS: 1. Continue metoprolol and Eliquis. 2. Continue diuresis at current rate another 24 hours and consider scaling back tomorrow. cc: Darrell Jang MD
--- NOTE | 2016-11-12 15:20 | PROGRESS NOTE ---
DATE: 11/12/2016 SUBJECTIVE: Clinically he is much improved. OBJECTIVE: Vital signs: Blood pressure 115/59, heart rate of 81, respiratory rate 18, temperature 98.3 degrees, 94% on 3 L. Output has been recorded at 1200 last 24 hours. Cardiovascular: Regular rate and rhythm. Pulmonary: He has fine rales at the bases. GI: Soft, nontender, nondistended. Bowel sounds are positive. Extremity: Exam he still has 2+ pitting edema in his lower extremities up to his midshin. LABORATORY DATA: Hemoglobin and hematocrit 10 and 31, white count 7.8, platelets 412,000. Basic looked okay. BNP down to 1128. PROBLEM LIST: 1. Acute congestive heart failure exacerbation diastolic type. We will continue diuresis. Cardiology is managing. I still think he probably needs a day or 2. 2. New onset atrial fibrillation. He is rate controlled on metoprolol, anticoagulated on Eliquis, stable from that standpoint. 3. Dyslipidemia. Continue regular medications. 4. Diabetes appears to be well controlled. DISPOSITION: I think he is okay to go to the floor and we will go from there. Possible discharge in next 1-2 days. cc: Dariel Berry MD
[2016-11-12] MEDS: CRESTOR PO SCH (21:09)
[2016-11-12] MEDS: FLOMAX PO SCH (21:09)
[2016-11-13] MEDS: DUONEB (A & A) INH SCH ×4 (03:35→22:24)
[2016-11-13] MEDS: PRILOSEC PO SCH (05:59)
[2016-11-13] MEDS: HUMALOG SUBQ SCH ×4 (06:03→21:15)
[2016-11-13 06:20] LABS: AGAP 11; BUN 16 mg/dL (8-22); CALCIUM 8.8 mg/dL (8.8-10.2); CHLORIDE 97 mmol/L (98-107); COSMO 284; MAGNESIUM 1.8 mg/dL (1.5-2.7); POTASSIUM 3.9 mmol/L (3.5-5.1); SODIUM 140 mmol/L (136-145); TCO2 32 mmol/L (25-35)
[2016-11-13] MEDS ORDERED: INSULIN PEN NEEDLES ONE (08:09)
[2016-11-13] MEDS: ALDACTONE PO SCH (08:16)
[2016-11-13] MEDS: HUMULIN 70/30 SUBQ SCH ×2 (08:16→16:36)
[2016-11-13] MEDS: THERA M PLUS PO SCH (08:16)
[2016-11-13] MEDS: COLACE PO SCH ×3 (08:16→16:36)
[2016-11-13] MEDS: ELIQUIS PO SCH ×2 (08:16→21:15)
[2016-11-13] MEDS: LOPRESSOR PO SCH ×2 (08:16→21:15)
[2016-11-13] MEDS: NEURONTIN PO SCH ×3 (08:21→16:36)
[2016-11-13] MEDS: LASIX IV SCH ×2 (10:53→21:14)
[2016-11-13] MEDS ORDERED: COLBENEMID PO SCH (11:12)
[2016-11-13] MEDS ORDERED: BENEMID PO SCH (11:32)
[2016-11-13] MEDS: COLCRYS PO SCH (12:05)
--- NOTE | 2016-11-13 18:06 | PROGRESS NOTE ---
DATE: 11/13/2016 SUBJECTIVE: Patient denies dyspnea on supplemental oxygen per nasal cannula. There has been no chest pain. OBJECTIVE: Vital Signs: Blood pressure 126/65, heart rate 74, oxygen saturation 94% on nasal cannula oxygen at 2 L/minute. Neck: Jugular venous distention appears to be present consistent with elevated central venous pressure. Chest: Auscultation of the chest reveals diminished breath sounds diffusely. Cardiac: Reveals a regular rate and rhythm without appreciable murmur or gallop. Extremities: Demonstrate 2+ pretibial edema. LABORATORY DATA: Potassium 3.9, BUN 16, creatinine 1.3. IMPRESSION: 1. Acute congestive heart failure, probably multifactorial in origin with significant component of cor pulmonale. Patient with COPD and recent lobectomy for lung cancer. 2. Recent onset of atrial fibrillation. Patient back in sinus rhythm. 3. Dyslipidemia. 4. Diabetes mellitus type 2. 5. Chronic obstructive pulmonary disease. 6. Status post resection of left lower lobe of the lung for non-small cell lung cancer. RECOMMENDATIONS: 1. Continue diuresis. We will continue Lasix 60 mg IV q.12. Reassess tomorrow and consider transition to oral torsemide. 2. Continue metoprolol. 3. Continue Eliquis. cc: Darrell Jang MD
[2016-11-13] MEDS: NORCO-5 PO PRN (18:26)
--- NOTE | 2016-11-13 18:27 | PROGRESS NOTE ---
DATE: 11/13/2016 SUBJECTIVE: Patient feels okay. LABORATORY DATA: Creatinine up to 1.3. PHYSICAL EXAM: Vital signs: Blood pressure 126/65, heart rate 74, respiratory rate 20, temperature 99.1 degrees, 94% on 4 L. Cardiovascular: Regular rate and rhythm. Pulmonary: Bilateral breath sounds. Clear to auscultation. GI: Soft, nontender, nondistended. Bowel sounds are positive. LABORATORY DATA: Also on peripheral exam he still has 2+ pitting edema. Creatinine is up to 1.3. IMPRESSION AND PLAN: 1. Acute diastolic dysfunction. Dr. Subramanian I think is bumped up his Lasix, I initially held it this morning because his creatinine had jumped up a little bit but he still has significant swelling so he will need further diuresis. 2. Diabetes. Continue insulin and follow blood sugars. Seems to be under control. 3. Gout appears to be under control. DISPOSITION: Pending clinical improvement. cc: Dariel Berry MD
[2016-11-13] MEDS: CRESTOR PO SCH (21:15)
[2016-11-13] MEDS: FLOMAX PO SCH (21:15)
[2016-11-14] MEDS: DUONEB (A & A) INH SCH ×3 (03:02→15:16)
[2016-11-14] MEDS: PRILOSEC PO SCH (06:28)
[2016-11-14] MEDS: HUMALOG SUBQ SCH ×2 (06:29→12:16)
[2016-11-14 06:46] LABS: AGAP 13; BUN 16 mg/dL (8-22); CALCIUM 8.7 mg/dL (8.8-10.2); CHLORIDE 96 mmol/L (98-107); COSMO 283; POTASSIUM 3.8 mmol/L (3.5-5.1); SODIUM 140 mmol/L (136-145); TCO2 31 mmol/L (25-35)
[2016-11-14 08:18] VITALS: BP 133/62
[2016-11-14] MEDS: ALDACTONE PO SCH (10:12)
[2016-11-14] MEDS: ELIQUIS PO SCH (10:12)
[2016-11-14] MEDS: COLACE PO SCH (10:13)
[2016-11-14] MEDS: THERA M PLUS PO SCH (10:13)
[2016-11-14] MEDS: LASIX IV SCH (10:13)
[2016-11-14] MEDS: NEURONTIN PO SCH (10:13)
[2016-11-14] MEDS: LOPRESSOR PO SCH (10:13)
[2016-11-14] MEDS: HUMULIN 70/30 SUBQ SCH (10:14)
[2016-11-14] MEDS: COLCRYS PO SCH (10:14)
[2016-11-14] MEDS: NORCO-5 PO PRN (11:21)
--- NOTE | 2016-11-14 11:41 | PROGRESS NOTE ---
DATE: 11/14/2016 SUBJECTIVE: Mr. Bridges reports he is doing better today. He has no complaints. PHYSICAL EXAMINATION: Vital Signs: Afebrile. Heart rate of 85, blood pressure 133/62. He denies any palpitations overnight. General: In no acute distress. Cardiovascular: He is in a regular rate and rhythm. No murmurs. His telemetry currently shows sinus rhythm. He has no lower extremity edema. Chest: Exam is clear bilaterally. No increased work of breathing. Abdomen: Soft, nontender. PERTINENT DATA: Sodium is 140, potassium 3.8, BUN is 16 and creatinine is 1.2. ASSESSMENT: 1. New-onset atrial fibrillation. 2. Likely diastolic failure. PLAN: The patient is on apixaban. Risks, benefits, and alternatives to anticoagulation were discussed with the patient previously. He will continue on this medication, as he is aware of its risks and benefits. He is on Lasix 60 mg IV every 12 hours. He was apparently on Lasix 40 mg daily at home. I believe that is a reasonable dose to continue him on, as likely his atrial fibrillation was the etiology to the initiation of his heart failure. We will plan on having him come back within 1 month or so to see Dr. Quesada. This appointment has already been placed in the discharge plan. Again, I am okay with him being discharged home at this time. cc: Demarcus Bridges MD
[2016-11-15] MEDS ORDERED: LASIX PO SCH (09:00)
--- NOTE | 2016-11-26 10:38 | DISCHARGE SUMMARY ---
ADMISSION DATE: 11/10/2016 DISCHARGE DATE: 11/14/2016 FINAL DISCHARGE DIAGNOSES: 1. Acute on chronic diastolic congestive heart failure exacerbation. 2. Hypertension. 3. Diabetes mellitus type 2. 4. Dyslipidemia. 5. Gout. 6. History of chronic obstructive pulmonary disease. 7. History of prostate cancer, status post prostatectomy. 8. History of recent resection of left lower lobe secondary to lung cancer. 9. Atrial fibrillation 10. Diabetic neuropathy 11. Small pericardial effusion CONSULTATIONS: Cardiology consultation with Dr. Bridges. IMAGING: Two-dimensional echocardiogram which revealed a small pericardial effusion without tamponade. HOSPITAL COURSE: Mr. Bridges is a 71-year-old male with a history of multiple medical problems who initially presented to the ER with a chief complaint of atrial flutter and lower extremity swelling. The patient was admitted to the Hospitalist Service with the diagnosis of new onset CHF. The patient was placed on Lasix and daily weights, and the patient's I's and O's were monitored closely. Cardiology was also consulted for further assistance. The patient responded well to diuretic therapy, and his shortness of breath and lower extremity edema improved. The patient continued to improve clinically and was placed on Eliquis for the new onset atrial fibrillation. The patient was ultimately cleared for discharge on 11/14/2016. DISCHARGE MEDICATIONS: 1. Metoprolol 25 mg p.o. twice a day. 2. Aldactone 25 mg p.o. daily. 3. K-Flex 500 mg p.o. twice a day. 4. Eliquis 5 mg p.o. twice a day. 5. Gabapentin 300 mg p.o. 3 times a day. 6. Crestor 5 mg p.o. at bedtime. 7. Janumet 1 tablet daily. 8. Vitamin D2 50,000 units oral every 7 days. 9. Omeprazole 40 mg p.o. daily. 10.Novolin 70/30 ten units twice a day. 11.Fowler 5/325 one tablet every 4 hours p.r.n. for pain. 12.Multivitamin 1 tablet oral daily. 13.Gemfibrozil 600 mg p.o. twice a day. 14.Flomax 0.4 mg p.o. daily. 15.Colace 100 mg p.o. twice a day. 16.Lasix 40 mg p.o. daily. 17.Combivent 1 puff every 4 p.r.n. for shortness of breath. DISCHARGE DIET: 1800 ADA diet, low sodium, low cholesterol diet. ACTIVITY: As tolerated. FOLLOWUP INSTRUCTIONS: The patient will need to follow up with Dr. Quesada as scheduled by his clinic. The patient will need to follow up with Dr. Tracy in 1 to 2 weeks. cc: MD Jun Rivera Jr, MD MTDD
== END 2016-11-14 16:18 | disposition home health service (06) ==
LOC: ED 17:56 → SUATTDRO 22:15 → 3S 22:15 → 4N 11-13 11:10
PROVIDERS: ATTEND Internal Medicine